=== PATIENT | male | born 1945 | race Caucasian/White ===

== ENCOUNTER 2017-02-20 13:48 | Emergency (ER) | payer OTHER, MEDICARE ==
[~2017-02-20] VITALS: Ht 167.6 cm; Wt 78.0 kg
[2017-02-20 13:54] VITALS: BP 125/68; PULSE 65; RESP 14; TEMP 98.5
[2017-02-20] MEDS ORDERED: ONDANSETRON HCL 4 MG/2 ML VIAL IVP ONE (14:00)
[2017-02-20] MEDS ORDERED: MORPHINE SULFATE 4 MG/ML INJ IV PUSH ONE (14:00)
[2017-02-20] MEDS ORDERED: SODIUM CHLORIDE 0.9% FLUSH 10 ML FLUSH IV FLUSH PRN (14:00)
[2017-02-20] MEDS ORDERED: BLOOD PRESSURE (14:01)
[2017-02-20] MEDS ORDERED: HIGH CHOLESTEROL (14:01)
[2017-02-20] MEDS ORDERED: FLUO20CA4 PO (14:01)
[2017-02-20] MEDS ORDERED: DULC100C PO (14:01)
--- NOTE | 2017-02-20 14:02 | PD ---
HPI Chief Complaint: Fall Time Seen by Provider: 14:02 Travel History International Travel<30 days: No Contact w/Intl Traveler<30days: No Traveled to known affect area: No History of Present Illness HPI 71-year-old male with history of hypertension and hyperlipidemia is brought to the emergency department by EMS for evaluation of fall from a ladder. Patient states that he was doing work on his roof and was climbing down the ladder and had about 2 rungs left to go before he was on the ground when he fell off of the ladder onto his left side hitting the ground. States that he lost consciousness. Per EMS report the brother stated the patient lost consciousness for about 1 minute. The patient is complaining of headache, neck pain, left shoulder pain and left ankle pain. States that he did feel dizzy when he was sitting up earlier as well. Denies any nausea, vomiting, numbness or tingling, weakness, back pain. Denies any anticoagulation. No other complaints. PFSH Past Medical History Hypertension: Yes Tetanus Vaccination: > 5 Years Influenza Vaccination: Yes Past Surgical History Surgical History: No Previous Surgery Social History Alcohol Use: Yes Tobacco Use: No Substance Use: No Allergies-Medications (Allergen,Severity, Reaction): Coded Allergies: No Known Allergies (Unverified , 02/20/17) Reported Meds & Prescriptions Reported Meds & Active Scripts Active Reported [High Cholesterol ] Dulcolax Stool Softener (Docusate Sodium) 100 Mg Cap 100 Mg PO BID [Blood Pressure ] Fluoxetine (Fluoxetine HCl) 20 Mg Cap 25 Mg PO DAILY Review of Systems Except as stated in HPI: all other systems reviewed are Neg Physical Exam Narrative GENERAL: Well-nourished and well-developed pleasant male patient in no acute distress. SKIN: 2 cm laceration to left eyebrow. No abrasion. HEAD: Normocephalic and atraumatic. No bony point tenderness or crepitus noted throughout the scalp and facial bones. EYES: No scleral icterus, injection, or drainage. PERRLA. EOMI. No hyphema present. ENT: No septal hematoma or hemotympanum noted. Oropharynx is clear and the airway is patent. NECK: Supple and the trachea is midline. No obvious deformities, crepitus, or midline tenderness noted. CARDIOVASCULAR: Regular rate and rhythm. RESPIRATORY: Breath sounds are equal bilaterally with no accessory muscle use, wheezing, rhonchi, or crackles. GASTROINTESTINAL: Abdomen is soft, non-tender, and nondistended. MUSCULOSKELETAL: Left shoulder with swelling and tenderness to palpation and limited range of motion secondary to pain. Left ankle with tenderness to palpation of dorsal aspect and posterior medial aspect of left foot. DP pulses are 2+ bilaterally. No obvious deformities, swelling, cyanosis, or ecchymosis is present throughout the upper and lower extremities. Patient has full range of motion without any signs of neurovascular compromise. Senior Art Director strength 5/5 and equal bilaterally, lower extremity strength 5/5 and equal bilaterally. BACK: Nontender without any obvious deformities, bony point tenderness, or crepitus noted throughout the thoracic and lumbar vertebrae. NEUROLOGICAL: Awake, alert, and oriented. Normal speech and gait. Cranial nerves are grossly intact. Data Data Last Documented VS Vital Signs Date Time Temp Pulse Resp B/P Pulse Ox O2 Delivery O2 Flow Rate FiO2 02/20/17 14:14 98 Room Air 02/20/17 13:54 98.5 65 14 125/[address] Brain W/O Iv Contrast(Rout) (02/20/17 13:59) Ct Cerv Spine W/O Contrast (02/20/17 13:59) Ankle, Complete (Taw9ify) (02/20/17 13:59) Shoulder, Complete (>2vws) (02/20/17 13:59) Basic Metabolic Panel (Bmp) (02/20/17 13:59) Complete Blood Count With Diff (02/20/17 13:59) Prothrombin Time / Inr (Pt) (02/20/17 13:59) Act Partial Throm Time (Ptt) (02/20/17 13:59) Iv Access Insert/Monitor (02/20/17 13:59) Ecg Monitoring (02/20/17 13:59) Oximetry (02/20/17 13:59) Morphine Inj (Morphine Inj) (02/20/17 14:00) Ondansetron Inj (Zofran Inj) (02/20/17 14:00) Sodium Chloride 0.9% Flush (Ns Flush) (02/20/17 14:00) Chest, Pa & Lat (02/20/17 13:59) Foot, Complete ([id number]) (02/20/17 13:59) Tetanus/Diphtheria Tox Adult (Tetanus/Di (02/20/17 14:30) Lidocai-Epi 1%-1:100,000 Inj (Xylocaine- (02/20/17 14:30) Splint Or Brace Apply/Monitor (02/20/17 15:35) Crutches (02/20/17 15:43) Labs Laboratory Tests Test 02/20/17 14:14 White Blood Count 8.8 TH/MM3 Red Blood Count 4.50 MIL/MM3 Hemoglobin 14.5 GM/DL Hematocrit 41.7 % Mean Corpuscular Volume 92.8 FL Mean Corpuscular Hemoglobin 32.3 PG Mean Corpuscular Hemoglobin 34.8 % Concent Red Cell Distribution Width 12.9 % Platelet Count 230 TH/MM3 Mean Platelet Volume 9.5 FL Neutrophils (%) (Auto) 66.1 % Lymphocytes (%) (Auto) 21.9 % Monocytes (%) (Auto) 10.9 % Eosinophils (%) (Auto) 0.6 % Basophils (%) (Auto) 0.5 % Neutrophils # (Auto) 5.8 TH/MM3 Lymphocytes # (Auto) 1.9 TH/MM3 Monocytes # (Auto) 1.0 TH/MM3 Eosinophils # (Auto) 0.1 TH/MM3 Basophils # (Auto) 0.0 TH/MM3 CBC Comment DIFF FINAL Differential Comment Prothrombin Time 10.7 SEC Prothromb Time International 1.0 RATIO Ratio Activated Partial 21.2 SEC Thromboplast Time Sodium Level 141 MEQ/L Potassium Level 4.1 MEQ/L Chloride Level 106 MEQ/L Carbon Dioxide Level 24.4 MEQ/L Anion Gap 11 MEQ/L Blood Urea Nitrogen 15 MG/DL Creatinine 1.27 MG/DL Estimat Glomerular Filtration 56 ML/MIN Rate Random Glucose 142 MG/DL Calcium Level 9.2 MG/DL [facility] Medical Decision Making Medical Screen Exam Complete: Yes Emergency Medical Condition: Yes Differential Diagnosis Fracture versus contusion versus intracranial hemorrhage versus minor head injury versus laceration Narrative Course 71-year-old male presents to the emergency department by EMS for evaluation of fall from a ladder onto his left side. Positive head trauma with loss of consciousness. Patient is afebrile, vital signs are stable. No focal neurologic deficits. X-ray imaging of the left shoulder and left ankle has been ordered and is pending. Patient is placed in a cervical collar. Head CT and CT of the cervical spine has been ordered and is pending. Laceration repairs performed, see procedure narrative for further details. Tetanus vaccination is updated here in the ED. CBC is unremarkable. BMP is unremarkable. Coags are unremarkable. Chest x-ray is negative. X-ray of the left shoulder is negative for any acute abnormalities. X-ray left foot is negative for any acute abnormality. X-ray of the left ankle shows a mildly displaced fracture extending through the tibial plafond and posterior malleolus region without dislocation. Head CT is negative. CT of the cervical spine is negative. Patient is placed in a left posterior short leg with stirrup splint and given crutches for ambulation. He has a scooter and walker at home that he can use for ambulation. He is instructed to follow up as an outpatient with Dr. Whitmore in the next 1-2 weeks. Patient verbalizes understanding and agreement with treatment plan. I discussed the case with my attending physician Dr. Knutson who is aware of the patients history, physical examination findings, and treatment plan. Procedures Procedure Narrative LACERATION LOCATION: Left eyebrow LENGTH: 2 cm NUMBER OF STITCHES/JORGE: 8 sutures REPAIR: The area of the laceration was prepped with Betadine and sterilely draped. The laceration was infiltrated with 1% lidocaine with epinephrine. The wound was copiously irrigated and explored without evidence of foreign body , tendon injury or neurovascular injury. The wound was closed using 5. 0 Ethilon. This was a single layer repair. Antibiotic ointment and a sterile dressing was applied. The patient was advised to keep the dressing clean and dry. Patient tolerated the procedure well. Diagnosis Primary Impression: Closed left ankle fracture Qualified Code: S82.892A - Closed left ankle fracture, initial encounter Additional Impressions: Head injury with loss of consciousness Facial laceration Qualified Code: S01.81XA - Facial laceration, initial encounter Fall Qualified Code: W19.XXXA - Fall, initial encounter Referrals: Zak Whitmore MD Patient Instructions: Ankle Fracture (ED), General Instructions Additional Instructions: Splint. Do not bear weight on left ankle. Apply ice for 20 minutes on, 20 minutes off. You may wash laceration gently with soap and water while in the shower. Apply topical antibiotic ointment twice daily. Have sutures removed in 5-7 days. Take medication as prescribed with food and a full glass of water. Do not take Lortab with alcohol or while driving. Follow-up with Dr. Whitmore in office in the next week. Return to the ED for any acute worsening of symptoms. Med/Other Pt SpecificInfo: Prescription(s) given Scripts Hydrocodone-Acetaminophen (Lortab)5-325 Mg Tab1 Tab PO Q6H PRN (PAIN GREATER THAN 6) #20 TAB Ref 0 Prov:Edwin Knutson MD 02/20/17 Disposition: 01 DISCHARGE HOME Condition: Stable Lula Billy Feb 20, 2017 14:02
[2017-02-20 14:14] VITALS: O2SAT 98
[2017-02-20] MEDS ORDERED: TETANUS/DIPHTHERIA TOXOID ADULT 0.5 ML VIAL IM ONE (14:30)
[2017-02-20] MEDS ORDERED: LIDOCAINE 1%/EPINEPHrine 1:100,000 SOLN 20 ML VIAL INFIL ONE (14:30)
--- NOTE | 2017-02-20 15:05 | RADRPT ---
EXAM DATE/TIME: 02/20/2017 14:15 [facility] COMPARISON: No previous studies available for comparison. INDICATIONS : Trauma. Pt fell 3 ft off of a ladder at home. MEDICAL HISTORY : None. SURGICAL HISTORY : None. ENCOUNTER: Initial ACUITY: 1 day PAIN SCORE: 10/10 LOCATION: Left Ankle FINDINGS: Three view exam was performed of the left ankle. There is a spiral fracture through the tibial plafon d extending into the distal shaft of the tibia. On the lateral view fracture extends slightly posteri siva with a free fragment at the posterior malleolus. No dislocation. CONCLUSION: 1. Mildly displaced fracture extending through the tibial plafond and posterior malleolus region with out dislocation. Davion Overton MD on February 20, 2017 at 15:01 Board Certified Radiologist. This report was verified electronically.
--- NOTE | 2017-02-20 15:07 | RADRPT ---
EXAM DATE/TIME: 02/20/2017 14:17 [facility] COMPARISON: No previous studies available for comparison. INDICATIONS : Trauma. Pt fell 3ft off of a ladder. Pt has medial pain radiating up his leg. MEDICAL HISTORY : None. SURGICAL HISTORY : None. ENCOUNTER: Initial ACUITY: 1 day PAIN SCORE: 10/10 LOCATION: Left foot FINDINGS: No acute fracture identified within the left foot. Mild osteoarthritis. There is a tibial plafond fra cture extending through the posterior malleolus with mild displacement. CONCLUSION: 1. Tibial plafond fracture. No acute fracture within the left foot. Davion Overton MD on February 20, 2017 at 15:04 Board Certified Radiologist. This report was verified electronically.
--- NOTE | 2017-02-20 15:09 | RADRPT ---
EXAM DATE/TIME: 02/20/2017 14:22 [facility] COMPARISON: No previous studies available for comparison. INDICATIONS : Trauma. Pt fell 3ft off of a ladder. Pt has anterior pain. MEDICAL HISTORY : None. SURGICAL HISTORY : None. ENCOUNTER: Initial ACUITY: 1 day PAIN SCORE: 5/10 LOCATION: Left shoulder FINDINGS: Multiple view examination of the left shoulder demonstrates no evidence of fracture or dislocation. The glenohumeral and acromioclavicular joints are maintained. There is normal range of motion betwee n internal and external rotation. Bony mineralization is normal. CONCLUSION: 1. No acute findings. Mild osteoarthritis at the acromioclavicular joint. Davion Overton MD on February 20, 2017 at 15:06 Board Certified Radiologist. This report was verified electronically.
--- NOTE | 2017-02-20 15:11 | RADRPT ---
EXAM DATE/TIME: 02/20/2017 14:30 [facility] COMPARISON: No previous studies available for comparison. INDICATIONS : Trauma. Pt fell 3ft off of a ladder. MEDICAL HISTORY : None. SURGICAL HISTORY : None. ENCOUNTER: Initial ACUITY: 1 day PAIN SCORE: 0/10 LOCATION: Bilateral chest FINDINGS: PA and lateral views of the chest demonstrate the lungs to be symmetrically aerated without evidence of mass, infiltrate or effusion. Minimal basilar atelectasis. The cardiomediastinal contours are unre markable. Osseous structures are intact. CONCLUSION: 1. Minimal basilar atelectasis. No active disease. Davion Overton MD on February 20, 2017 at 15:07 Board Certified Radiologist. This report was verified electronically.
[2017-02-20 15:15] LABS: AUTOMATED NEUTROPHIL # 5.8 TH/MM3 (1.8-7.7); BASOPHIL % 0.5 % (0.0-2.0); EOSINOPHIL # 0.1 TH/MM3 (0-0.4); EOSINOPHIL % 0.6 % (0.0-4.0); HEMATOCRIT 41.7 % (39.0-51.0); HEMO FLAGS DIFF FINAL; LYMPH % 21.9 % (9.0-44.0); LYMPHOCYTE # 1.9 TH/MM3 (1.0-4.8); MEAN CELL VOLUME 92.8 FL (80.0-100.0); MEAN CORPUSCULAR HEMOGLOBIN 32.3 PG (27.0-34.0); MEAN CORPUSCULAR HGB CONC 34.8 % (32.0-36.0); MONO % 10.9 % (0.0-8.0); NEUT % 66.1 % (16.0-70.0); PLATELET COUNT 230 TH/MM3 (150-450); RED CELL DISTRIBUTION WIDTH 12.9 % (11.6-17.2); WHITE BLOOD COUNT 8.8 TH/MM3 (4.0-11.0)
--- NOTE | 2017-02-20 15:26 | RADRPT ---
EXAM DATE/TIME: 02/20/2017 14:32 [facility] COMPARISON: No previous studies available for comparison. INDICATIONS : Trauma; fall off second step. RADIATION DOSE: 56.35 CTDIvol (mGy) MEDICAL HISTORY : Hypertension. SURGICAL HISTORY : None. ENCOUNTER: Initial ACUITY: 1 day PAIN SCALE: 5/10 LOCATION: cranial TECHNIQUE: Multiple contiguous axial images were obtained of the head. Using automated exposure control and adj ustment of the mA and/or kV according to patient size, radiation dose was kept as low as reasonably a chievable to obtain optimal diagnostic quality images. FINDINGS: CEREBRUM: The ventricles are normal for age. No evidence of midline shift, mass lesion, hemorrhage or acute in farction. No extra-axial fluid collections are seen. POSTERIOR FOSSA: The cerebellum and brainstem are intact. The 4th ventricle is midline. The cerebellopontine angle i s unremarkable. EXTRACRANIAL: The visualized portion of the orbits is intact. There is left periorbital soft tissue swelling. SKULL: The calvaria is intact. No evidence of skull fracture. CONCLUSION: 1. No acute intracranial abnormalities. Left periorbital soft tissue swelling. Davion Overton MD on February 20, 2017 at 15:23 Board Certified Radiologist. This report was verified electronically.
--- NOTE | 2017-02-20 15:30 | RADRPT ---
EXAM DATE/TIME: 02/20/2017 14:34 [facility] COMPARISON: No previous studies available for comparison. INDICATIONS : Trauma; fall off second step. RADIATION DOSE: 34.74 CTDIvol (mGy) MEDICAL HISTORY : Hypertension. SURGICAL HISTORY : None. ENCOUNTER: Initial ACUITY: 1 day PAIN SCALE: 5/10 LOCATION: Bilateral neck TECHNIQUE: Volumetric scanning of the cervical spine was performed. Multiplanar reconstructions in the sagittal, coronal and oblique axial planes were performed. Using automated exposure control and adjustment o f the mA and/or kV according to patient size, radiation dose was kept as low as reasonably achievable to obtain optimal diagnostic quality images. FINDINGS: VERTEBRAE: Normal vertebral body height. ALIGNMENT: No evidence of subluxation. C2-C3: The bony spinal canal is normal in size. No evidence of disc bulge or herniation. The neural forami na are bilaterally patent. C3-C4: The bony spinal canal is normal in size. No evidence of disc bulge or herniation. The neural forami na are bilaterally patent. C4-C5: The bony spinal canal is normal in size. No evidence of disc bulge or herniation. The neural forami na are bilaterally patent. C5-C6: The bony spinal canal is normal in size. No evidence of disc bulge or herniation. The neural forami na are bilaterally patent. C6-C7: The bony spinal canal is normal in size. No evidence of disc bulge or herniation. The neural forami na are bilaterally patent. C7-T1: The bony spinal canal is normal in size. No evidence of disc bulge or herniation. The neural forami na are bilaterally patent. CONCLUSION: 1. No acute findings. Moderate degenerative disc disease and facet arthropathy. Davion Overton MD on February 20, 2017 at 15:24 Board Certified Radiologist. This report was verified electronically.
[2017-02-20 15:42] LABS: APTT (PATIENT) 21.2 SEC (24.3-30.1); PROTHROMBIN TIME - PATIENT 10.7 SEC (9.8-11.6)
[2017-02-20 15:47] LABS: BICARBONATE 24.4 MEQ/L (21.0-32.0)
[2017-02-20 15:48] LABS: POTASSIUM 4.1 MEQ/L (3.5-5.1)
[2017-02-20] MEDS ORDERED: HYDR-3533 PO (15:55)
== END 2017-02-20 16:41 | disposition home or self-care (01) ==
LOC: NEPC 13:48
DX: S82.52XA Displaced fracture of medial malleolus of left tibia, initial encounter for closed fracture (principal); S06.9X1A Unspecified intracranial injury with loss of consciousness of 30 minutes or less, initial encounter; S01.112A Laceration without foreign body of left eyelid and periocular area, initial encounter; M54.2 Cervicalgia; M25.512 Pain in left shoulder; I10 Essential (primary) hypertension; E78.5 Hyperlipidemia, unspecified; W11.XXXA Fall on and from ladder, initial encounter; Z23 Encounter for immunization
CPT/HCPCS: 12011; 29515; 70450; 71020; 72125; 73030; 73610; 73630; 80048; 85025; 85610; 85730; 90471; 90714; 96374; 96375; 99284; E0113; J2270; J2405; L0150

== ENCOUNTER 2017-02-24 11:03 | Emergency (ER) | payer MEDICARE, OTHER ==
[~2017-02-24] VITALS: Ht 170.2 cm; Wt 80.0 kg
[~2017-02-24 11:03] MED LIST: BLOOD PRESSURE; DULC100C PO; FLUO20CA4 PO; HIGH CHOLESTEROL; HYDR-3533 PO
[2017-02-24 11:05] VITALS: BP 142/83; PULSE 80; RESP 16; TEMP 97.5; O2SAT 96
--- NOTE | 2017-02-24 11:34 | PD ---
HPI . left eye brow suture removal Chief Complaint: Wound/Suture/Staple Re-Check Time Seen by Provider: 11:34 Travel History International Travel<30 days: No Contact w/Intl Traveler<30days: No Traveled to known affect area: No History of Present Illness HPI 71-year-old male who was seen on February 20, 2017 and received 8 sutures to his left eyebrow here for removal. Patient says he was told to come back for removal. The area was cleaned and the sutures are not ready for removal today. Patient has been advised to return tomorrow for removal of his sutures. He has no complaints today. PFSH Past Medical History Cardiovascular Problems: Yes (htn) Hypertension: Yes Social History Alcohol Use: Yes Tobacco Use: No Substance Use: No Allergies-Medications (Allergen,Severity, Reaction): Coded Allergies: No Known Allergies (Unverified , 02/24/17) Reported Meds & Prescriptions Reported Meds & Active Scripts Active Lortab (Hydrocodone-Acetaminophen) 5-325 Mg Tab 1 Tab PO Q6H PRN Reported [High Cholesterol ] Dulcolax Stool Softener (Docusate Sodium) 100 Mg Cap 100 Mg PO BID [Blood Pressure ] Fluoxetine (Fluoxetine HCl) 20 Mg Cap 25 Mg PO DAILY Review of Systems General / Constitutional: No: Fever Eyes: No: Visual changes HENT: No: Headaches Cardiovascular: No: Chest Pain or Discomfort Respiratory: No: Shortness of Breath Gastrointestinal: No: Abdominal Pain Genitourinary: No: Dysuria Musculoskeletal: No: Pain Skin: Positive Other (suture removal), No Rash Neurologic: No: Weakness Psychiatric: No: Depression Endocrine: No: Polydipsia Hematologic/Lymphatic: No: Easy Bruising Physical Exam Narrative GENERAL: AAO x 3, no acute distress, Well-nourished, well-developed patient. SKIN: Warm and dry. No visible rashes or bruising. left eye brown with [address] healing well. not all ready for removal. clearing ecchymosis HEAD: Normocephalic and atraumatic. EYES: No scleral icterus. No injection or drainage. EOM intact, PERRLA ENT: No nasal drainage noted. Mucous membranes pink. Airway patent. NECK: Supple, trachea midline. No JVD. CARDIOVASCULAR: Regular rate and rhythm without murmurs, gallops, or rubs. RESPIRATORY: Breath sounds equal bilaterally. No accessory muscle use. No rhonchi or rales. GASTROINTESTINAL: Abdomen soft, non-tender, nondistended. EXTREMITIES: No cyanosis or edema. BACK: Nontender without obvious deformity. No CVA tenderness. PSYCH: AAO x 3, normal affect. Data Data Last Documented VS Vital Signs Date Time Temp Pulse Resp B/P Pulse Ox O2 Delivery O2 Flow Rate FiO2 02/24/17 11:05 97.5 80 16 142/83 96 Room Air [facility] Medical Decision Making Medical Screen Exam Complete: Yes Emergency Medical Condition: Yes Medical Record Reviewed: Yes (sutures places on 02/20/17) Differential Diagnosis suture removal, wound dehiscence, less likely cellulitis Narrative Course 71-year-old male who was seen on February 20, 2017 and received 8 sutures to his left eyebrow here for removal. Patient says he was told to come back for removal. The area was cleaned and the sutures are not ready for removal today. Patient has been advised to return tomorrow for removal of his sutures. He has no complaints today. Patient seen and examined. He has 8 sutures to his left eyebrow. They're not exactly ready for removal. There are 2 sutures that could be taken out, however patient says he rather have all of the removed tomorrow. He has been advised to return to the emergency department tomorrow. Patient verbalized understanding of instructions, questions were answered, and thanked me for their care. I advised them if their condition worsens, please return to the nearest emergency room for further care. Diagnosis Primary Impression: Facial laceration Qualified Code: S01.81XD - Facial laceration, subsequent encounter Patient Instructions: Acute Wound Care (ED), General Instructions Additional Instructions: Return to the emergency department tomorrow for removal of your sutures. Med/Other Pt SpecificInfo: No Meds Exist/No RX given Disposition: DISCHARGE HOME Condition: Stable Maru Graham Feb 24, 2017 11:34
[2017-02-24] MEDS ORDERED: TRAM50TA PO (11:41)
== END 2017-02-24 12:18 | disposition home or self-care (01) ==
LOC: NEPK 11:03
DX: S01.81XD Laceration without foreign body of other part of head, subsequent encounter (principal); W11.XXXD Fall on and from ladder, subsequent encounter
CPT/HCPCS: 99281

== ENCOUNTER 2017-02-28 08:43 | Emergency (ER) | payer MEDICARE ==
[~2017-02-28] VITALS: Ht 170.2 cm; Wt 79.5 kg
[~2017-02-28 08:43] MED LIST changes: -DULC100C PO; +TRAM50TA PO
[2017-02-28 08:44] VITALS: BP 139/88; PULSE 72; RESP 16; TEMP 97.9; O2SAT 97
--- NOTE | 2017-02-28 09:35 | PD ---
HPI Chief Complaint: Wound/Suture/Staple Re-Check Time Seen by Provider: 09:33 Travel History International Travel<30 days: No Contact w/Intl Traveler<30days: No Traveled to known affect area: No History of Present Illness HPI 71-year-old male presents to the emergency department requesting suture removal to his left eyebrow. They have been in place for 8 days. He denies fever, chills, nausea, vomiting. Denies erythema, edema, drainage from the wound site. No other medical complaints. No other modifying factors or associated signs and symptoms. PFSH Past Medical History Cardiovascular Problems: Yes (htn) High Cholesterol: Yes Diminished Hearing: No Hypertension: Yes Social History Alcohol Use: Yes (4-5 weekly) Tobacco Use: No Substance Use: No Allergies-Medications (Allergen,Severity, Reaction): Coded Allergies: No Known Allergies (Unverified , 02/28/17) Reported Meds & Prescriptions Reported Meds & Active Scripts Active Lortab (Hydrocodone-Acetaminophen) 5-325 Mg Tab 1 Tab PO Q6H PRN Reported Tramadol (Tramadol HCl) 50 Mg Tab 50 Mg PO Q6H PRN [High Cholesterol ] [Blood Pressure ] Fluoxetine (Fluoxetine HCl) 20 Mg Cap 25 Mg PO DAILY Review of Systems Except as stated in HPI: all other systems reviewed are Neg Physical Exam Narrative GENERAL: Well-nourished, well-developed male patient, in no acute distress SKIN: Warm and dry. Healed laceration to the left eyebrow that is well approximated with sutures intact; without erythema, edema, drainage. No signs of infection. HEAD: Atraumatic. Normocephalic. EYES: Pupils equal and round. No scleral icterus. No injection or drainage. ENT: Mucosa pink and moist. Airway patent. NECK: Trachea midline. CARDIOVASCULAR: Regular rate. RESPIRATORY: No accessory muscle use. GASTROINTESTINAL: Rounded. MUSCULOSKELETAL: No obvious deformities. No clubbing. No cyanosis. No edema. NEUROLOGICAL: Awake and alert. Oriented 3. No obvious cranial nerve deficits. Motor grossly within normal limits. Normal speech. PSYCHIATRIC: Appropriate mood and affect; insight and judgment normal. Data Data Last Documented VS Vital Signs Date Time Temp Pulse Resp B/P Pulse Ox O2 Delivery O2 Flow Rate FiO2 02/28/17 08:44 97.9 72 16 139/88 97 Room Air [facility] Medical Decision Making Medical Screen Exam Complete: Yes Emergency Medical Condition: Yes Medical Record Reviewed: Yes Differential Diagnosis Suture removal, wound recheck, medical clearance Narrative Course 71-year-old male with healed laceration to the left eyebrow that is well approximated with sutures intact and without erythema, edema, drainage. No signs of infection. Sutures removed. Patient tolerated well. Patient verbalizes understanding and agreement with treatment plan. Patient is medically cleared and stable for discharge. Discussed reasons to return to the emergency department. Instructed patient to follow up with primary care provider. Patient agrees with treatment plan. The patients vital signs are stable and the patient is stable for outpatient follow-up and treatment. Patient discharged home, stable and in no acute distress. Diagnosis Primary Impression: Encounter for removal of sutures Referrals: Primary Care Physician Patient Instructions: General Instructions, Stitches Removal (ED) Additional Instructions: Follow-up with primary care provider Return to the emergency department immediately with worsening of symptoms Med/Other Pt SpecificInfo: No Meds Exist/No RX given Disposition: 01 DISCHARGE HOME Condition: Stable Lula Esquivel Feb 28, 2017 09:35
== END 2017-02-28 10:03 | disposition home or self-care (01) ==
LOC: NEPK 08:43
DX: S01.112D Laceration without foreign body of left eyelid and periocular area, subsequent encounter (principal); X58.XXXD Exposure to other specified factors, subsequent encounter; Z48.02 Encounter for removal of sutures
CPT/HCPCS: 99281